=== PATIENT | female | born 1965 | race Two or more races ===

== ENCOUNTER 2018-12-07 16:40 | Emergency (ER) | payer BC ==
[2018-12-07] MEDS ORDERED: Metoclopramide HCl 10 MG/2 ML VIAL ONE (16:54)
[2018-12-07] MEDS ORDERED: diphenhydrAMINE 50 MG/ML VIAL ONE (17:02)
[2018-12-07] MEDS ORDERED: Ketorolac Tromethamine 30 MG/ML VIAL ONE (17:02)
== END 2018-12-07 18:13 | disposition home or self-care (01) ==
LOC: ERS 16:40
DX: G43.909 Migraine, unspecified, not intractable, without status migrainosus (principal)
CPT/HCPCS: 96365; 96375; J1200; J1885; J2765